=== PATIENT | female | born 1985 | race Caucasian/White ===

== ENCOUNTER 2022-04-26 19:44 | Emergency (ER) | payer OTHER, BC ==
[~2022-04-26] VITALS: Ht 157.5 cm; Wt 113.4 kg
[2022-04-26] MEDS ORDERED: AMOCLA875 PO (21:59)
== END 2022-04-26 22:24 | disposition home or self-care (01) ==
LOC: ER 19:44
DX: S01.551A Open bite of lip, initial encounter (principal); W54.0XXA Bitten by dog, initial encounter
CPT/HCPCS: 99282